=== PATIENT | female | born 1995 | race African-American/Black ===

== ENCOUNTER 2019-02-14 19:00 | Emergency (ER) | payer MEDICAID, OTHER ==
[~2019-02-14] VITALS: Ht 157.5 cm; Wt 50.3 kg
[2019-02-14 20:13] LABS: APPEARANCE,URINE Clear (CLEAR); BILIRUBIN,URINE Negative (NEGATIVE); BLOOD, URINE Negative Ery/uL (NEGATIVE); COLOR,URINE Yellow (YELLOW); KETONES,URINE 15 (NEGATIVE); LEUKOCYTE ESTERASE ,URINE Negative (NEGATIVE); NITRITE, URINE Negative (NEGATIVE); PH,URINE 6.5 (5.0-8.0); PROTEIN,URINE Negative (NEGATIVE); UGLUCOSE Negative (NEGATIVE); UROBILINOGEN,URINE 0.2 EU/dL (0.2)
[2019-02-14 20:24] LABS: BASOPHILS % (AUTO) 0.5 % (0.0-2.0); EOSINOPHILS % (AUTO) 0.3 % (0.0-6.0); HEMATOCRIT 40 % (33-45); HEMOGLOBIN 13.8 g/dL (11.5-14.8); LYMPHOCYTES # (AUTO) 1.6 /CMM (0.8-4.8); LYMPHOCYTES % (AUTO) 28.3 % (20.0-44.0); MEAN CORPUSCULAR HGB CONC 34 g/dl (31.0-36.0); MEAN CORPUSCULAR VOLUME 92 fL (82-100); MONOCYTES # (AUTO) 0.5 /CMM (0.1-1.30); NEUTROPHILS # (AUTO) 3.5 /CMM (1.8-8.9); NEUTROPHILS % (AUTO) 62.9 % (43.0-81.0); PLATELET COUNT (AUTO) 228 /CMM (150-450); RED BLOOD CELL COUNT(AUTO) 4.38 MIL/uL (4.0-5.2); WHITE BLOOD COUNT (AUTO) 5.6 K/uL (4.3-11.0)
[2019-02-14 20:33] LABS: CALCIUM, SERUM 9.3 mg/dL (8.5-10.1); CARBON DIOXIDE 26 mmol/L (21-32); CHLORIDE 104 mmol/L (98-107); CREATININE 0.7 mg/dL (0.6-1.3); GLUCOSE 92 mg/dL (74-106); POTASSIUM 3.6 mmol/L (3.5-5.1); SODIUM SERUM 139 mmol/L (136-145); UREA NITROGEN, BLOOD 11 mg/dL (7-18)
[2019-02-14 20:40] LABS: ALANINE AMINOTRANSFERASE 17 U/L (12-78); ALBUMIN 4.4 g/dL (3.4-5.0); ALKALINE PHOSPHATASE 54 U/L (46-116); ASPARTATE AMINOTRANSFERASE 20 U/L (15-37); BILIRUBIN,DIRECT 0.2 mg/dL (0.0-0.2); TOTAL PROTEIN, SERUM 8.2 g/dL (6.4-8.2)
[2019-02-14 20:45] LABS: ACETAMINOPHEN 0 ug/ml (10-30); ALCOHOL, BLOOD < 3 mg/dL (0-0)
--- NOTE | 2019-02-15 | NUR ---
Art GREY TENDER at bedside for eval.
--- NOTE | 2019-02-15 00:41 | NUR ---
CALLED [facility] FOR TRANSPORT ETA OF [id number] WAS GIVEN. TRIP#[id number]
--- NOTE | 2019-02-15 01:26 | NUR ---
GAVE REPORT TO [facility] FOR TRANSPORTATION [facility]
--- NOTE | 2019-02-15 01:30 | NUR ---
PATIENT ACCEPTED AT [facility] ACCEPTED BY DR MCDOWELL NUMBER TO CALL FOR REPORT EXT [phone]
[2019-02-15 01:34] VITALS: BP 91/60
--- NOTE | 2019-02-15 01:36 | NUR ---
GAVE REPORT TO VIRAJ HILL FOR [facility]
== END 2019-02-15 01:41 ==
LOC: ER 19:01
DX: R45.851 Suicidal ideations (principal); M54.2 Cervicalgia; Z60.2 Problems related to living alone
CPT/HCPCS: 36415; 70450; 71045; 72125; 80048; 80076; 80305; 80307; 80329; 81001; 84703; 85025; 99285; G0480; 81000-TC

== ENCOUNTER 2019-02-23 13:22 | Emergency (ER) | payer BC, OTHER ==
[~2019-02-23] VITALS: Ht 160 cm; Wt 51.3 kg
[2019-02-23 13:27] VITALS: BP 121/72
[2019-02-23] MEDS ORDERED: BACITRACIN ZINC OINT PACKET 1 EA PACKET TP ONE (13:49)
[2019-02-23] MEDS ORDERED: IBUPROFEN 400 MG TABLET ONE (13:56)
[2019-02-23] MEDS ORDERED: IBUPROFEN 400 MG TABLET PO ONE (14:00)
== END 2019-02-23 13:59 | disposition home or self-care (01) ==
LOC: ER 13:22
DX: S50.811A Abrasion of right forearm, initial encounter (principal); F25.9 Schizoaffective disorder, unspecified; F32.9 Major depressive disorder, single episode, unspecified; F17.200 Nicotine dependence, unspecified, uncomplicated; Z60.2 Problems related to living alone; Y04.0XXA Assault by unarmed brawl or fight, initial encounter; Y93.89 Activity, other specified; Y92.89 Other specified places as the place of occurrence of the external cause; Y99.8 Other external cause status

== ENCOUNTER 2019-02-24 00:47 | Emergency (ER) | payer BC, OTHER ==
[~2019-02-24] VITALS: Ht 157.5 cm; Wt 51.3 kg
--- NOTE | 2019-02-24 01:30 | NUR ---
PT BIB [facility]. V/S SIGNS STABLE. NO RESPIRATORY DISTRESS NOTED.
--- NOTE | 2019-02-24 01:38 | NUR ---
URINE SPECIMEN COLLECTED.
[2019-02-24 01:40] LABS: APPEARANCE,URINE Clear (CLEAR); BILIRUBIN,URINE Negative (NEGATIVE); BLOOD, URINE Trace-intact Ery/uL (NEGATIVE); COLOR,URINE Yellow (YELLOW); KETONES,URINE Negative (NEGATIVE); LEUKOCYTE ESTERASE ,URINE Negative (NEGATIVE); NITRITE, URINE Negative (NEGATIVE); PH,URINE 6.5 (5.0-8.0); PROTEIN,URINE Negative (NEGATIVE); UGLUCOSE Negative (NEGATIVE); UROBILINOGEN,URINE 0.2 EU/dL (0.2)
[2019-02-24 01:59] LABS: BACTERIA,URINE Few /HPF (None Seen); RBC,URINE 0-2 /HPF (0-2); SQUAMOUS EPITHELIAL CELL,UR Few /HPF (None Seen); WBC,URINE 0-2 /HPF (0-3)
--- NOTE | 2019-02-24 02:09 | NUR ---
TANK ERECTOR AT BEDSIDE.
[2019-02-24 02:20] LABS: BASOPHILS # (AUTO) 0.1 /CMM (0.0-0.2); EOSINOPHILS % (AUTO) 0.6 % (0.0-6.0); HEMATOCRIT 40 % (33-45); HEMOGLOBIN 13.7 g/dL (11.5-14.8); LYMPHOCYTES # (AUTO) 1.8 /CMM (0.8-4.8); LYMPHOCYTES % (AUTO) 32.7 % (20.0-44.0); MEAN CORPUSCULAR HGB CONC 34 g/dl (31.0-36.0); MEAN CORPUSCULAR VOLUME 91 fL (82-100); MONOCYTES # (AUTO) 0.5 /CMM (0.1-1.30); MONOCYTES % (AUTO) 8.6 % (2.0-12.0); NEUTROPHILS # (AUTO) 3.1 /CMM (1.8-8.9); NEUTROPHILS % (AUTO) 57.1 % (43.0-81.0); PLATELET COUNT (AUTO) 187 /CMM (150-450); RED BLOOD CELL COUNT(AUTO) 4.45 MIL/uL (4.0-5.2); WHITE BLOOD COUNT (AUTO) 5.4 K/uL (4.3-11.0)
[2019-02-24 02:23] LABS: CALCIUM, SERUM 8.9 mg/dL (8.5-10.1); CREATININE 0.7 mg/dL (0.6-1.3); POTASSIUM 4.4 mmol/L (3.5-5.1)
[2019-02-24 02:29] LABS: ALBUMIN 4.3 g/dL (3.4-5.0); BILIRUBIN,DIRECT 0.2 mg/dL (0.0-0.2); BILIRUBIN,TOTAL 0.6 mg/dL (0.2-1.0); SALICYLATE 0.6 mg/dL (2.8-20.0)
--- NOTE | 2019-02-24 03:49 | NUR ---
BARRON FROM [facility] CALLED. PATIENT WAS ACCEPTED AT [facility]. ACCEPTED BY DR BERNA RAMOS TO CALL FOR REPORT .
--- NOTE | 2019-02-24 03:50 | NUR ---
CALLED [facility] FOR TRANSPORT ETA OF 1000 WAS GIVEN. TRIP#[id number]
--- NOTE | 2019-02-24 04:46 | NUR ---
[facility] CALLED FOR NEW ETA. 30 MINS.
--- NOTE | 2019-02-24 05:01 | NUR ---
REPORT GIVEN TO
--- NOTE | 2019-02-24 05:20 | NUR ---
PT REFUSING TO GO TO [facility], PER PT "I WANT TO STAY HERE AND RECOVER FROM BEING DRUNK". PATIENT INFORMED THE ALCOHOL LEVELS ARE NEGATIVE AND SHE IS MEDICALLY STABLE. PT SHOUTING, AGITATED PER PT" I AM MILLIONAIRE, I AM PAYING FOR YOU". RN AND CHARGE NURSE TRIED THE PT TO CALM DOWN. PT STILL SHOUTING AND AGITATED AND VERBALLY ABUSIVE TOWARDS STAFF.CALLED SECURITY, AND SECURITY STAYED CLOSE BY, LEFT THE PATIENT ALONE AT THIS TIME, FREQUENT VISUAL CHECKS DONE.
--- NOTE | 2019-02-24 05:23 | NUR ---
CALLED THE NON EMERGENT [employer] DISPATCH TO REPORT UNRULY PT, WHO IS REFUSING TO LEAVE THE ER. SPOKE TO MINER HELPER [phone] TO DISPATCH OFFICERS.
--- NOTE | 2019-02-24 05:40 | NUR ---
[employer] AT BEDSIDE. PT STILL AGITATED, AND SHOUTING TOWARDS THE MANAGER SECURITY AND SAFETY.
--- NOTE | 2019-02-24 06:10 | NUR ---
PT IS MEDICALLY CLEARED BY . SALOMED SIGNED DISCHARGED PAPER AND DOING PT ARREST.
[2019-02-24 06:18] VITALS: BP 110/70
== END 2019-02-24 06:19 ==
LOC: ER 00:49
DX: R45.851 Suicidal ideations (principal); F22 Delusional disorders; F10.129 Alcohol abuse with intoxication, unspecified; F17.200 Nicotine dependence, unspecified, uncomplicated; Z60.2 Problems related to living alone; Z59.0 Homelessness; Y90.6 Blood alcohol level of 120-199 mg/100 ml
CPT/HCPCS: 36415; 80048; 80076; 80305; 80307; 80329; 81001; 84703; 85025; 99284; G0480; 81000-TC